=== PATIENT | female | born 1955 | race Caucasian/White ===

== ENCOUNTER 2021-04-16 17:53 | Emergency (ER) | payer MEDICARE, OTHER ==
[~2021-04-16 17:53] MED LIST: HYDROCODON-ACE1 EAC6 PO; LEVOTHYROXINE200 MC1 PO; LEVOTHYROXINE200 MC2 PO; LIPITOR TAB 2020 MG PO; LISINOPRIL-HCT1 EAC1 PO; MONTELUKAST SOD10 MG PO; PROAIR HFA8.5 GM INH; SINGULAIR10 MG PO; SUPER B-50 COM1 EACH PO; VALIUM 5 MG TAB5 MG PO; VITAMIN B-121000 MCG INJ; VITAMIN B12 PO; VITAMIN D31000 UNIT PO; VITAMIN D350 MC3 PO; [UNRECOGNIZED DRUG - OTHER] PO
== END 2021-04-16 20:35 | disposition left against medical advice (07) ==
LOC: ER1 17:53
DX: Z53.21 Procedure and treatment not carried out due to patient leaving prior to being seen by health care provider (principal)